=== PATIENT | male | born 1980 | race American Indian/Alaskan Native ===

== ENCOUNTER 2022-01-17 07:03 | Emergency (ER) | payer MEDICARE ==
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
== END 2022-01-17 13:07 ==
LOC: ED 07:03
DX: I46.9 Cardiac arrest, cause unspecified (principal); E11.9 Type 2 diabetes mellitus without complications
CPT/HCPCS: 31500; 92950; 99285